=== PATIENT | female | born 1995 | race Caucasian/White ===

== ENCOUNTER 2017-03-27 09:58 | Emergency (ER) | payer OTHER ==
[2017-03-27 10:11] VITALS: Ht 157.5 cm
[2017-03-27] MEDS ORDERED: IBUPROFEN 600 MG TAB PO STA (10:25)
--- NOTE | 2017-03-27 10:41 | DIAGNOSTIC IMAGING REPORT ---
R ANKLE MIN 3 VIEWS ROUTINE CLINICAL HISTORY: Right ankle pain status post trauma COMPARISON: None. DISCUSSION: No acute fractures are visualized. There is a tiny ossicle at the level of the lateral malleolar tip. This is felt to be old. There is lateral soft tissue swelling. The ankle mortise appears intact. IMPRESSION: Lateral soft tissue swelling. No fractures or dislocations identified. Electronically signed by: Jeffrey Norton M.D. 03/27/2017 10:40 AM Dictated Date/Time: 03/27/2017 10:39 AM
[2017-03-27 11:41] VITALS: BP 123/66; PULSE 82; TEMP 36.6; O2SAT 98
--- NOTE | 2017-03-28 11:07 | EMERGENCY ROOM VISIT NOTE ---
ED Visit Note First contact with patient: 10:15 Chief Complaint: I injured my right ankle. History of Present Illness: Ms. Hinton is a 21-year-old white female who is brought into the ED a few wheelchair complaining of right lateral ankle pain. Historically patient reports she's had a previous right ankle fracture of the ankle but does remember which specific bones were broken. She reports last night approximately 10 hours ago she was walking across the street, slipped and fell and twisted her right ankle. She was able walk on it after the injury but overnight she has increasing pain and swelling. Currently she describes her discomfort as a stiffness sensation located over the lateral aspect of the ankle extending down into the foot. She rates her discomfort 9/10. Her pain worsens with ambulation, palpation, inversion and plantarflexion. She has not identified any alleviating factors related to the pain. She has not taken medication for pain prior to arrival at the hospital. She denies any associated symptoms including hip pain, knee pain, lower leg pain , foot weakness/numbness/tingling. Review of Systems: As noted above in history of present illness. Past Medical History: As previously noted. Current Medications: Patient denies. Allergies to Medications: Patient denies. Social History: Patient is currently employed; she feels safe in her home environment; she denies tobacco use and admits to alcohol use. Physical Examination: Vital Signs: Date Time Temp Pulse Resp B/P (MAP) Pulse Ox O2 Delivery O2 Flow Rate FiO2 03/27/17 11:41 36.6 82 20 123/66 98 03/27/17 10:11 36.6 82 20 123/66 98 Room Air GENERAL: 21-year-old female in mild distress due to pain, nontoxic-appearing, afebrile and hemodynamically stable. NEUROLOGICAL: Awake, alert and oriented to person, place and time. Answering questions appropriately and following commands. SKIN: Warm, dry and pink. No soft tissue trauma noted. RIGHT LOWER EXTREMITY: No gross bony deformity. No tenderness in the hip, knee or lower leg. Moderate tenderness and swelling over the lateral aspect of the ankle including the ligamentous structures anterior and inferior to the malleolus. I do not appreciate any laxity on testing the ligamentous structures. No tenderness throughout the foot. Throughout the foot the skin was warm and pink and capillary refill is brisk. She is able to distinguish light sensations through all dermatomes. Decreased range of motion in plantar flexion and dorsiflexion of the ankle due to pain. She does have full range of motion of flexion and extension of all toes. ED Course: Patient is assessed as noted above. Patient's medication list was reviewed. Patient was given ice and 600 mg of ibuprofen by mouth for pain. Right ankle x-rays: Was read by myself and the radiologist showing no acute fractures or dislocations. It is noted that patient has a tiny ossicle at the level of the lateral malleolus tip that appears well corticated and old in nature. Patient was placed on nonweightbearing crutches and a gel splint. Patient was educated about today's findings and instructed on her treatment plan ; she verbalized understanding and agreement with this plan. Clinical Impression: Right ankle sprain. Decision-Making: Initially my differential diagnosis I considered ankle fracture , ankle sprain, ankle contusion and other causes. Disposition: Patient discharged home in stable condition accompanied by her boyfriend; prior to departure she was reassessed and subjectively reported she was feeling better and rated her discomfort 3/10. Plan: Comfort measures were discussed with the patient including rest, ice, elevation , ibuprofen and acetaminophen and splint and crutch use. Patient was encouraged to follow-up with orthopedics if no better in 7-10 days. Patient was encouraged return the ED for worsening/uncontrolled pain, uncontrolled swelling, foot weakness/numbness/tingling or any new/concerning symptoms.
== END 2017-03-27 11:41 | disposition home or self-care (01) ==
LOC: C.EDB 10:00 → C.EDD 11:41
DX: S93.401A Sprain of unspecified ligament of right ankle, initial encounter (principal); W01.0XXA Fall on same level from slipping, tripping and stumbling without subsequent striking against object, initial encounter